=== PATIENT | female | born 1990 | race Caucasian/White ===

== ENCOUNTER 2016-06-03 20:58 | Emergency (ER) | payer OTHER ==
[~2016-06-03] VITALS: Ht 172.7 cm; Wt 74.1 kg
[~2016-06-03 20:58] MED LIST: DOCU-41 PO; IBUP800T28 PO; PNV1TABL9 PO
[2016-06-03 21:10] VITALS: BP 131/86; PULSE 86; RESP 24; O2SAT 96
--- NOTE | 2016-06-03 21:33 | ED.REPORT ---
HPI-Abd Pain F Under 39 Date of Service Jun 03, 2016 ED Provider: Misael Chan MD 26 year old female presents to the ER complaining of three weeks of urinary urgency and inability to void, with LUQ pain onset tonight. Patient denies dysuria and productive cough. She called [facility] today to arrange an appointment for tomorrow, but her suggest that she be seen in the ER tonight. Nursing Notes Stated Complaint: UTI SYMPTOMS Chief Complaint: Female Abdominal Pain Nursing Notes Reviewed: Yes Allergies: Coded Allergies: No Known Allergies (Unverified , 12/08/15) Scheduled Cephalexin (Keflex) 500 Mg Capsule 500 MG PO TID Pnv Cmb#21/Iron/Folic Acid ( Complete Caplet) 1 Each Tablet 1 EACH PO DAILY Scheduled PRN Docusate Sodium (Colace) 100 Mg Capsule 100 MG PO BID PRN PRN For Constipation Ibuprofen (Ibuprofen) 800 Mg Tablet 800 MG PO Q6H PRN PRN For Pain General Time Seen by MD: 21:33 Chief Complaint Other (Urinary Urgency) Hx Obtained From: Patient Arrived By: Walk-in Sudden in Onset?: No Onset Occurred: More than a week ago... (3 weeks) Symptom Duration: Since onset Location: : LUQ Quality: Painful Severity: Current: Moderate Severity: Maximum: Moderate Associated with: Reports: Urinary retention Similar Sx Previous: No Past Medical History Past Medical History Healthy Smoking History Never Smoker Review of Systems Constitutional: Denies: Chills, Fever Respiratory: Denies: Non-productive cough, Prod cough, bloody, Prod cough, brown, Prod cough, clear, Prod cough, green, Prod cough, white, Prod cough, yellow GI: Denies: Nausea, Vomiting Female: Reports: Urinary urgency, Urination decreased, Denies: Dysuria, Flank pain, Hematuria, Complete sys rev & neg: except as marked. Physical Exam Initial Vital Signs Vital Signs (First) Date Time Temp Pulse Resp B/P Pulse Ox O2 Delivery O2 Flow Rate FiO2 06/03/16 21:10 36.1 86 24 131/86 96 Room Air Initial VS: Reviewed Head / Eyes: Atraumatic, Normocephalic Neck: Supple, Non-tender, Full range of motion Extremities: Vascular intact, Neuro intact, No swelling, No tenderness Skin: Warm, Dry, No cyanosis Neurologic: Alert, Oriented, Nonfocal Psychiatric: Mood/affect normal, Behavior normal, Normal thought content General/Constitutional: Awake, Alert, No acute distress, Well appearing, Well developed, Well nourished Respiratory / Chest: Breath sounds NL, Breath sounds = bilat, No respiratory distress, No rales, No rhonchi, No wheezing Cardiovascular: Heart rate NL, Regular rhythm, Heart sounds NL, Peripheral circulation NL Abdomen: Soft, Non-tender, No guarding, No rebound, No distention Back: Inspection NL, Non-tender, No CVA tenderness ENT: Airway patent, Pharynx NL Mouth: Positive: Mucous membranes dry Interpretation & Diagnostics Lab Results Interpretation Result Diagram: 06/03/16212406/03/162124 Test 06/03/16 21:25 06/03/16 21:30 White Blood Count 5.9th/mm3 (3.8-10.1) Red Blood Count 4.95mil/mm3 (3.90-5.20) Hemoglobin 14.8g/dL (12.0-15.6) Hematocrit 42.5% (35.0-46.0) Mean Corpuscular Volume 85.9fL (81-100) Mean Corpuscular Hemoglobin 29.9pg (27.0-35.0) Mean Corpuscular Hemoglobin Concent 34.8% (32.0-37.0) Red Cell Distribution Width 12.5% (12.3-15.4) Platelet Count 303bil/L (150-400) Neutrophils (%) (Auto) 40.7% (40-74) Lymphocytes (%) (Auto) 42.9% (14-46) Monocytes (%) (Auto) 11.1% (4-12) Eosinophils (%) (Auto) 4.6% (0-5) Basophils (%) (Auto) 0.7% (0-3) Sodium Level 140mEq/L (134-144) Potassium Level 4.5mEq/L (3.5-5.2) Chloride Level 102mEq/L (97-108) Carbon Dioxide Level 22mmol/L (18-29) Blood Urea Nitrogen 15mg/dL (6-20) Creatinine 0.73mg/dL (0.57-1.00) Estimat Glomerular Filtration Rate 137mL/min (>59) Glucose Level 112mg/dL (60-99) Calcium Level 10.0mg/dL (8.5-10.1) Magnesium Level 2.2mg/dL (1.6-2.6) Total Bilirubin 0.3mg/dL (0.0-1.2) Aspartate Amino Transf (AST/SGOT) 17U/L (0-50) Alanine Aminotransferase (ALT/SGPT) 13U/L (0-32) Alkaline Phosphatase 123U/L (25-150) Total Protein 8.2g/dL (6.4-8.4) Albumin 4.6g/dL (3.4-5.0) Lipase 34U/L (13-60) Hold Calderon Top Tube Received (Received) Urine Color Yellow (YELLOW) Urine Appearance Slightly cloudy Urine pH 6.5 (5.0-8.0) Urine Specific [place] 1.020 (1.003-1.035) Urine Protein Tracemg/dL (NEG,TRACE) Urine Glucose (UA) Negativemg/dL (NEGATIVE) Urine Ketones Negativemg/dL (NEGATIVE) Urine Occult Blood Negative (NEGATIVE) Urine Nitrite Negative (NEGATIVE) Urine Bilirubin Negative (NEGATIVE) Urine Urobilinogen Normalmg/dL (NORMAL) Urine Leukocyte Esterase Small (NEGATIVE) Urine RBC 0-2/hpf (0-2) Urine WBC 6-10/hpf (0-5) Urine Epithelial Cells Many/hpf (NONE-MOD) Urine Crystals None seen (NONE SEEN) Urine Bacteria Moderate/hpf (NONE-FEW) Urine Hyaline Casts None/lpf (NONE) Urine Granular Casts None seen (NONE SEEN) Urine Waxy Casts None seen (NONE SEEN) Urine Red Blood Cell Casts None seen (NONE SEEN) Urine White Blood Cell Casts None seen (NONE SEEN) Urine Mucus None seen (None Seen) Urine Trichomonas None seen (NONE SEEN) Urine Yeast None (NONE SEEN) Urinalysis Comment None Urine Culture Reflexed Indicated Hold Urine Received (Received) Re-Eval/Medical Decision Med Decision/Clinical Course Med Decision/Clinical Course: 26-year-old with dysuria and some mild left upper quadrant abdominal pain, presented to have an urinary tract infection. No other significant findings. Begun with Rocephin IV and Keflex to follow. Pyridium when necessary. Follow-up with PCP. Cultures pending. She is additionally somewhat dehydrated and was given 2 L of fluid here with labs pending. Discharge now with instructions for avoiding dehydration. Re-Evaluation/Progress : Time of Eval: 23:11 Re-Evaluation/Progress Note: Patient is resting comfortably. Discussed lab results and plan to ultimately discharge. Patient is amenable to the plan. Return precautions given. All other questions addressed. Counseled Regarding: Diagnosis, Lab results, Need for follow-up, When/why to return to ED Discharge & Departure Primary Impression: Urinary tract infection Additional Impression: Dehydration Disposition: Home Discharge Condition All VS Reviewed: Yes Condition: Stable Patient Instructions: Dehydration (DC), Urinary Tract Infection in Women (DC) Additional Instructions: Try and maintain your hydration. Gatorade or Powerade or Pedialyte would be good choices. Keflex 500 mg three times daily for ten days. Follow-up with your doctor in the office. Return if any immediate issues in the meantime. Referrals: Mare Morrison (PCP) Dino Segura MD (Family) Scribe Attestation Portions of this note were transcribed by Dora Monzon. I, Dr. Chan, personally performed the history, physical exam and medical decision-making; I reviewed and confirmed the accuracy of the information in the transcribed note. Signed by: Anne-Marie Strong. 06/04/2016 - 01:23 copies to: Dino Segura MD; Mare Morrison Christopher W MD Jun 03, 2016 21:33 DORA MONZON Jun 03, 2016 21:41
[2016-06-03 21:39] LABS: BASOPHILS % (AUTO) 0.7 % (0-3); EOSINOPHILS % (AUTO) 4.6 % (0-5); MONOCYTES % (AUTO) 11.1 % (4-12); Mean Corpuscular Hemoglobin 29.9 pg (27.0-35.0); Mean Corpuscular Volume 85.9 fL (81-100); NEUTROPHILS % (AUTO) 40.7 % (40-74); Platelet Count 303 bil/L (150-400)
[2016-06-03] MEDS ORDERED: Phenazopyridine 97.5 mg Tablet PO ONE (21:45)
[2016-06-03] MEDS ORDERED: Pantoprazole 4 mg/mL 10 mL Inj IVPUSH ONE (21:45)
[2016-06-03 22:00] LABS: Magnesium 2.2 mg/dL (1.6-2.6)
[2016-06-03 22:01] LABS: APPEARANCE,URINE SLIGHTLY CLOUDY (CLEAR,HAZY); COLOR,URINE YELLOW (YELLOW); OCCULT BLOOD,URINE NEGATIVE (NEGATIVE); PH,URINE 6.5 (5.0-8.0); UROBILINOGEN,URINE NORMAL (NORMAL)
[2016-06-03] MEDS: 0.9% Sodium Chloride 1,000 ML IV SCH ×2 (22:50→23:18)
[2016-06-04] MEDS ORDERED: cefTRIAXone Inj 2,000 MG in Dextrose 5% Minibag Plus 50 ML IV ONE (01:10)
[2016-06-04] MEDS ORDERED: CEPH-512 PO (01:20)
[2016-06-04 01:42] VITALS: BP 106/71; PULSE 68; RESP 16; O2SAT 95
== END 2016-06-04 01:44 | disposition home or self-care (01) ==
LOC: SED 20:58
DX: N39.0 Urinary tract infection, site not specified (principal); B96.20 Unspecified Escherichia coli [E. coli] as the cause of diseases classified elsewhere; E86.0 Dehydration
CPT/HCPCS: 36415; 80053; 81000; 81025; 83690; 83735; 85025; 87077; 87086; 87088; 87186; 96361; 96365; 96375; 99285; J0696; J7030